=== PATIENT | male | born 1980 | race Caucasian/White ===

== ENCOUNTER → 2017-04-06 | Outpatient (CLI) | payer MEDICAID, SELFPAY | PROVIDERS: Visit Provider Nurse Practitioner Family | DX: R53.83 Other fatigue (principal) | CPT/HCPCS: 80053; 80061; 82306; 83036; 84439; 84443; 85025 ==

== ENCOUNTER 2020-02-01 15:24 | Emergency (ER) | payer MEDICAID, SELFPAY ==
[2020-02-01 15:24] VITALS: BP 140/100; PULSE 101; RESP 18; TEMP 36.7; O2SAT 100; BMI 27.2
--- NOTE | 2020-02-01 15:38 | HMH.EDGENADL ---
ED Disposition Clinical Impression: Abdominal pain, acute, generalized Constipation Qualifiers: Constipation type: unspecified constipation type Qualified Code(s): K59.00 - Constipation, unspecified Hepatitis C Qualifiers: Viral hepatitis chronicity: unspecified Hepatic coma status: without hepatic coma Qualified Code(s): B19.20 - Unspecified viral hepatitis C without hepatic coma Disposition: Home, Self-Care Condition on Discharge: Good Additional Instructions: MiraLAX as prescribed. Ibuprofen as needed for pain. Additional instructions for ABDOMINAL PAIN: See your physician as soon as possible for further evaluation. Return immediately if worsening abdominal pain, vomiting, shortness of breath, fever, vomiting of blood or abdominal distention. Follow-up with your primary care provider regarding further evaluation and treatment of hepatitis C. Prescriptions: polyethylene glycoL 3350 [Miralax 17gm Packet] 17 gm PO DAILY #5 packet Transmission Status: Pending to [facility] Referrals: Marc Childers MD [Primary Care Provider] - - Critical Care Critical Care Time: No Attestation: On , the high probability of a clinically significant, sudden or life threatening deterioration of the following system(s) required my full and direct attention, intervention and personal management. The time I documented below is in addition to time spent performing reported procedures but includes the following listed in this critical care notation. Medical Decision Making - Medical Records Medical records reviewed: Yes: I reviewed the patient's medical records. MR Comment: [facility] portal accessed and visit from 01/31/2020 reviewed. The patient had a CT scan of his thoracic and lumbar spine that were negative. There is no mention that he complained of abdominal pain or vomiting. No lab tests were performed, no notation of any blood draw or IV. Naproxen rx at discharge. Ketorolac and [place] in ED. - Tarik Inquiry Pt receiving controlled substance: No Tarik was queried for this patient: Yes Reference #:: [id number] Comment: 1 rx. suboxone 11/27/19 Vital Signs: 02/01/20 15:24 02/01/20 17:53 Temperature 98.1 F Temperature Source Oral Pulse Rate [Right] 101 H 94 H Respiratory Rate 18 Blood Pressure [Right Arm] 140/100 H 143/90 H Blood Pressure Mean [Right Arm] 113 107 Blood Pressure Source [Right Arm] Automatic Cuff Blood Pressure Position [Right Arm] Sitting 02 Sat by Pulse Oximetry 100 98 Oxygen Delivery Method Room Air - Lab Data Lab results reviewed: Yes: I reviewed the patient's lab results. Lab Results 02/01/20 15:52: Urine Color Dk yellow, Urine Appearance Clear, Urine pH 7.5, Ur Specific [place] 1.020, Urine Protein Negative, Urine Glucose (UA) Negative, Urine Ketones Negative, Urine Blood Negative, Urine Nitrate Negative, Urine Bilirubin Negative, Urine Urobilinogen 4.0, Ur Leukocyte Esterase Negative, Urine RBC None, Urine WBC Occasional, Ur Squamous Epith Cells Occasional, Amorphous Sediment 2+, Urine Bacteria None 02/01/20 15:52: WBC 11.4 H, RBC 4.73, Hgb 14.1, Hct 42.5, MCV 89.8, MCH 29.8, MCHC 33.2, RDW 12.6, Plt Count 176, MPV 7.8, Neut % (Auto) 81.5 H, Lymph % (Auto) 13.3, [place] % (Auto) 4.7, Eos % (Auto) 0.2, Baso % (Auto) 0.3, Neut # (Auto) 9.3 H, Lymph # (Auto) 1.5, [place] # (Auto) 0.5, Eos # (Auto) 0.0, Baso # (Auto) 0.0 02/01/20 15:52: Sodium 135 L, Potassium 4.3, Chloride 94 L, Carbon Dioxide 31 H, Anion Gap 14.3, BUN 23 H, Creatinine 0.70, Estimated Creat Clear 171, Estimated GFR 125, Est GFR ( Amer) 151, Glucose 141 H, Calcium 9.7, Total Bilirubin 1.5 H, AST 75 H, ALT 70, Alkaline Phosphatase 118, Total Protein 8.7 H, Albumin 3.8, Globulin 4.9 H, Albumin/Globulin Ratio 0.8 L, Amylase 40, Lipase 16 L 02/01/20 15:52: Lactate 1.4 02/01/20 15:52: Urine Opiates Screen Positive H, Urine Methadone Screen Negative, Ur Barbituates Screen Negative, Ur Phencyclidine Scrn Negative
--- NOTE | 2020-02-01 15:52 | CT_ITS ---
PROCEDURE: CT ABDOMEN PELVIS W CON CLINICAL INDICATION: abd pain Generalized abdominal pain with nausea vomiting and diarrhea COMPARISON: No exams were available for comparison TECHNIQUE: IV Contrast: 75ML OPTIRAY 350 Oral Contrast None Axial images obtained with sagittal and coronal reformats. All CT scans at the facility use one or more dose reduction, viz: automated exposure control, ma/kV adjustment per patient size (including targeted exams where dose is matched to indication, i.e. head), or iterative reconstruction technique. FINDINGS: LOWER THORAX: There is trace left-sided effusion. ABDOMEN & PELVIS: The liver has an unremarkable appearance. There is mildly distended gallbladder. There is prominence of the intra and extrahepatic biliary radicles.. There is massive splenomegaly at 20 cm cephalad caudad. There is heterogeneous soft tissue density in the region of the antrum of the stomach. This may be related to gastric mass or severe mucosal thickening. This is best demonstrated on axial image 35 series 3 and coronal image 23 series 601 and sagittal image 51. This area measures approximately 6.5 x 4.9 cm. There is a focal area of air just lateral to the thickened portion of the stomach toward the right in may be related to air within the duodenal bulb. Repeat exam with oral contrast may confirm. The pancreatic duct is slightly prominent. Small nodes are present in the celiac region. A 9 mm soft tissue density is present in the amisha hepatis region along the superior aspect of the gallbladder. Unknown etiology. MRI may provide further evaluation. No renal or ureteral calculi. No hydronephrosis. There are few small retroperitoneal lymph nodes. There is a moderate amount of retained colonic feces throughout the colon. No evidence of appendicitis. There is a small amount fluid in the pelvis. No acute bony findings IMPRESSION: 1. Severe thickening of the antral portion of the stomach. Inflammatory change or neoplasm is considered. Repeat exam with both IV and oral contrast may provide further evaluation. Upper endoscopy suggested for further evaluation. 2. Distended gallbladder with intra and extrahepatic biliary ductal dilatation. Small soft tissue density in the amisha hepatis region etiology indeterminate. Suggest MRCP for further evaluation. Cannot exclude distal common bile duct obstructing lesion. 3. Massive splenomegaly at 20 cm. 4. Constipation Dictated by: Yan Adame MD 02/02/2020 08:44 Yan Adame MD in [place] 02/02/2020 08:44
[2020-02-01 16:03] LABS: Microscopic, Urine URINE MICROSCOPIC (MICROSCOPIC)
[2020-02-01 16:08] LABS: Chloride 94 mmol/L (98-107); Sodium 135 mmol/L (136-145)
[2020-02-01 16:09] LABS: Basophils % 0.3 % (0.1-2.0); Eosinophils % 0.2 % (0.1-12.0); Hematocrit 42.5 % (42.0-52.0); Hemoglobin 14.1 g/dL (14.1-18.0); Lymphocytes # 1.5 K/mm3 (0.7-4.5); Lymphocytes % 13.3 % (10-50); Mean Corpuscular HGB Conc 33.2 g/dL (31.8-35.4); Mean Corpuscular Hemoglobin 29.8 pg (27.0-31.2); Mean Corpuscular Volume 89.8 fl (80-94); Mean Platelet Volume 7.8 fl (7.4-10.4); Monocytes # 0.5 K/mm3 (0.1-1.0); Monocytes % 4.7 % (1.7-9.3); Neutrophils # 9.3 K/mm3 (1.8-7.8); Neutrophils % 81.5 % (37.0-80.0); Platelet Count 176 K/mm3 (142-424); Potassium 4.3 mmoL/L (3.5-5.1); Red Blood Count 4.73 M/mm3 (4.60-6.20); Red Cell Distribution Width 12.6 % (11.5-17.5); White Blood Count 11.4 K/mm3 (4.8-10.8)
[2020-02-01 16:11] LABS: Alanine Aminotransferase 70 U/L (12-78); Alkaline Phosphatase 118 U/L (38-126); Amylase 40 U/L (30-110); Anion Gap 14.3 mEq/L (5-15); Appearance,Urine CLEAR (Clear); Aspartate Amino Transferase 75 U/L (17-59); Bilirubin,Total 1.5 mg/dl (0.2-1.3); Blood Urea Nitrogen 23 mg/dl (9-20); Blood, Urine Negative (Negative); Calcium 9.7 mg/dl (8.4-10.2); Carbon Dioxide 31 mmol/L (22.0-30.0); Color,Urine DK YELLOW (Yellow); Creatinine Clearance Estimated 171 mL/min (50-200); Estimated Glomerular Filt Rate 125 ml/min (>60); GFR (African American) 151 ML/MIN (>60); Glucose 141 mg/dl (74-100); Glucose,Urine (UA) Negative (Negative); Ketones,Urine Negative (Negative); Leukocyte Esterase,Urine Negative (Negative); Lipase 16 U/L (23-300); Nitrate,Urine Negative (Negative); PH,Urine 7.5 (5.0-8.5); Protein,Urine Negative (Negative)
[2020-02-01 16:12] LABS: Albumin Level 3.8 g/dl (3.5-5.0); Albumin/Globulin Ratio 0.8 (1.1-1.8); Globulin 4.9 g/dL (1.3-3.2); Total Protein,Serum 8.7 g/dl (6.3-8.2)
[2020-02-01 16:13] LABS: Ammonia < 9 umol/L (9-30)
[2020-02-01 16:14] LABS: Bilirubin,Urine Negative (Negative)
[2020-02-01 16:16] LABS: Lactic Acid 1.4 mmol/L (0.7-2.1)
[2020-02-01 16:18] LABS: Amorphous Sediment,Urine 2+ /lpf; Squamous Epithelial Cell,Urine Occasional #/hpf (0-5); WBC,Urine Occasional #/hpf (0-3)
[2020-02-01 16:19] LABS: Activated Partial Thrombo Time 29.9 seconds (23.6-34.0); Ethyl Alcohol < 10 mg/dl (0-10); INR 1.18 (0.9-1.1); Prothrombin Time 12.9 seconds (9.4-11.8)
[2020-02-01 16:20] LABS: Alanine Aminotransferase 70 U/L (12-78); Albumin Level 3.8 g/dl (3.5-5.0); Alkaline Phosphatase 135 U/L (38-126); Aspartate Amino Transferase 76 U/L (17-59); Bilirubin,Direct 0.8 mg/dl (0.0-0.4); Bilirubin,Indirect 0.7 mg/dL (0.0-0.9); Bilirubin,Total 1.5 mg/dl (0.2-1.3); Bilirubin,Unconjugated 0.6 mg/dL (0.0-1.1); Total Protein,Serum 8.5 g/dl (6.3-8.2)
[2020-02-01 16:21] LABS: Acetaminophen < 10 ug/ml (10-30)
[2020-02-01 16:22] LABS: Benzodiazepines Screen,Urine Negative ng/ml (<200)
[2020-02-01 16:24] LABS: Barbiturates Screen,Urine Negative ng/ml (<200)
[2020-02-01 16:25] LABS: Methadone Screen,Urine Negative ng/ml (<300)
[2020-02-01 16:26] LABS: Cannabinoid Screen,Urine Positive ng/ml (<50); Cocaine Screen,Urine Negative ng/ml (<300)
[2020-02-01 16:27] LABS: Opiate Screen,Urine Positive ng/ml (<300)
[2020-02-01 16:28] LABS: Phencyclidine Screen,Urine Negative ng/ml (<25)
[2020-02-01 17:53] VITALS: BP 143/90; PULSE 94; O2SAT 98
[2020-02-01 19:06] VITALS: BP 132/85; PULSE 95; RESP 18; TEMP 36.8; O2SAT 100
--- NOTE | 2020-02-03 16:52 | PC.NURSE ---
left message this morning on pt voicemail and also left message with sister in law for pt to call the ER. No contact at this time.
--- NOTE | 2020-02-04 17:04 | PC.NURSE ---
Notified pt of ct results for a gastric mass and needed to fu with his PCP for further care. Pt stated that he will
[2020-02-06 19:22] LABS: Amphetamine Positive (.); Amphetamines Positive (.); Methamphetamine Positive (.)
[2020-02-07 10:04] LABS: Amphetamine (GC/MS) 1282 ng/mL (Cutoff=500); Methamphetamine (GC/MS) >3000 ng/mL (Cutoff=500)
== END 2020-02-01 19:08 | disposition home or self-care (01) ==
PROVIDERS: Emergency Provider Emergency Medicine; PCP Emergency Medicine
DX: R10.84 Generalized abdominal pain (principal); B19.20 Unspecified viral hepatitis C without hepatic coma; F17.210 Nicotine dependence, cigarettes, uncomplicated; K31.89 Other diseases of stomach and duodenum; F19.10 Other psychoactive substance abuse, uncomplicated
CPT/HCPCS: 74177; 80053; 80076; 80305; 80324; 80329; 81001; 82140; 82150; 83605; 83690; 85025; 85610; 85730; 87040; 87077; 87186; 96365; 96375; 99284; J2405

== ENCOUNTER 2020-02-04 17:38 | Inpatient (IN) | payer MEDICAID, SELFPAY ==
[2020-02-04] VITALS (10 sets, daily range): BP systolic 136–163; BP diastolic 77–105; PULSE 104–132; RESP 17–24; TEMP 36.6–37; O2SAT 96–99; BMI 29.2; BMI 23.8
--- NOTE | 2020-02-04 17:59 | HMH.EDGENADL ---
ED Disposition Condition on Discharge: Fair - Critical Care Critical Care Time: No <Maverick Wen - Last Filed: 02/04/20 19:55> <Marc Childers - Last Filed: 02/04/20 21:04> Clinical Impression: Splenomegaly, Heroin abuse, Abdominal pain, acute, generalized, Mass of stomach, Severe sepsis with acute organ dysfunction, Elevated erythrocyte sedimentation rate, Elevated C-reactive protein (CRP), IVDU (intravenous drug user), Colitis Hepatitis C Qualifiers: Viral hepatitis chronicity: unspecified Hepatic coma status: without hepatic coma Qualified Code(s): B19.20 - Unspecified viral hepatitis C without hepatic coma Vomiting Qualifiers: Vomiting type: unspecified Vomiting Intractability: unspecified Nausea presence: with nausea Qualified Code(s): R11.2 - Nausea with vomiting, unspecified Disposition: Admitted As Inpatient Referrals: Marc Childers MD [Primary Care Provider] - Attestation: On 02/04/20, the high probability of a clinically significant, sudden or life threatening deterioration of the following system(s) required my full and direct attention, intervention and personal management. The time I documented below is in addition to time spent performing reported procedures but includes the following listed in this critical care notation. Medical Decision Making - Tarik Inquiry Pt receiving controlled substance: No - Lab Data Result diagrams: 02/04/20 18:45 02/04/20 18:05 <BehzadMaverick - Last Filed: 02/04/20 19:55> - Lab Data Lab results reviewed: Yes: I reviewed the patient's lab results. Result diagrams: 02/04/20 18:45 02/04/20 18:05 - CT Data CT Scan: Abdomen, Pelvis Time Received: 20:[address] Reviewed: Yes: I have viewed the radiologist's interpretation Preliminary Findings: Abnormal (see report) <Marc Childers - Last Filed: 02/04/20 21:04> Vital Signs: 02/04/20 17:49 02/04/20 18:21 02/04/20 19:31 Temperature 98 F Temperature Source Oral Pulse Rate [Left Radial] 132 H 122 H 115 H Respiratory Rate 18 18 Blood Pressure [Right Arm] 163/100 H 141/102 H 150/96 H Blood Pressure Mean [Right Arm] 121 115 114 Blood Pressure Source [Right Arm] Automatic Cuff Blood Pressure Position [Right Arm] Sitting Sitting 02 Sat by Pulse Oximetry 96 96 97 Oxygen Delivery Method Room Air Room Air Room Air 02/04/20 20:02 02/04/20 20:46 Temperature Temperature Source Pulse Rate [Left Radial] 115 H 107 H Respiratory Rate 18 18 Blood Pressure [Right Arm] 157/105 H 156/97 H Blood Pressure Mean [Right Arm] 122 116 Blood Pressure Source [Right Arm] Blood Pressure Position [Right Arm] 02 Sat by Pulse Oximetry 97 97 Oxygen Delivery Method Room Air Room Air - Lab Data Lab Results 02/04/20 18:05: Sodium 133 L, Potassium 4.1, Chloride 96 L, Carbon Dioxide 26, Anion Gap 15.1 H, BUN 27 H, Creatinine 0.80, Estimated Creat Clear 165, Estimated GFR 107, Est GFR ( Amer) 130, Glucose 188 H, Calcium 9.1, Total Bilirubin 1.4 H, AST 29, ALT 35, Alkaline Phosphatase 132 H, C-Reactive Protein 278.3 H, Total Protein 7.6, Albumin 3.3 L, Globulin 4.3 H, Albumin/Globulin Ratio 0.8 L, Amylase 36, Lipase 10 L 02/04/20 18:05: Lactate 2.1 02/04/20 18:45: WBC 13.7 H, RBC 4.43 L, Hgb 13.0 L, Hct 39.0 L, MCV 88.1, MCH 29.4, MCHC 33.3, RDW 13.1, Plt Count 195, MPV 8.4, Neut % (Auto) 81.3 H, Lymph % (Auto) 10.5, [place] % (Auto) 7.6, Eos % (Auto) 0.4, Baso % (Auto) 0.2, Neut # (Auto) 11.1 H, Lymph # (Auto) 1.4, [place] # (Auto) 1.0, Eos # (Auto) 0.1, Baso # (Auto) 0.0 02/04/20 18:45: ESR 80 H 02/04/20 19:50: Urine Color Gwendolyn, Urine Appearance Clear, Urine pH 6.0, Ur Specific [place] 1.025, Urine Protein 1+, Urine Glucose (UA) Negative, Urine Ketones Negative, Urine Blood Negative, Urine Nitrate Negative, Urine Bilirubin Negative, Urine Urobilinogen >=8.0, Ur Leukocyte Esterase Negative, Urine RBC 3-5, Urine WBC 3-5, Ur Squamous Epith Cells 5-10, Amorphous Sediment 1+, Urine Bacteria 1+, Urine Mucus 1+, Ur
--- NOTE | 2020-02-04 18:17 | CT_ITS ---
PROCEDURE: CT ABDOMEN PELVIS W CON CLINICAL INDICATION: abdominal pain, possible gastric mass COMPARISON: CT CT ABDOMEN PELVIS W CON from 02/01/2020 TECHNIQUE: IV Contrast: 75ML OPTIRAY 350 Oral Contrast None Axial images obtained with sagittal and coronal reformats. All CT scans at the facility use one or more dose reduction, viz: automated exposure control, ma/kV adjustment per patient size (including targeted exams where dose is matched to indication, i.e. head), or iterative reconstruction technique. FINDINGS: The lung bases are clear. The liver has an unremarkable appearance. There is a trace amount of pericholecystic fluid with mildly distended gallbladder and mild prominence of the common bile duct. Consider MRCP for further evaluation. There is splenomegaly at 20 cm. The adrenal glands, pancreas, and kidneys have an unremarkable appearance. Previously there was a question of a gastric mass at the antrum of the stomach. The stomach antrum is better distended on today's study and there is oral contrast present. There is some persistent thickening of the antrum of the stomach. Upper endoscopy is suggested for further evaluation. This has a less masslike appearance compared to the previous exam likely due to the better distension and possibly improvement in inflammatory change. There is a moderate amount of retained colonic feces. There is thickening of the descending colon and sigmoid colon consistent with colitis. There is minimal haziness of the pericolic fat in the left pericolic gutter. No acute bony findings. IMPRESSION: 1. Gastric wall thickening is less apparent compared to 02/01/2020 and in part may be due to improved distension as well as improvement in the inflammatory changes. There does however remain some gastric wall thickening of the antrum of the stomach and may be due to underlying gastritis. Suggest upper endoscopy for further evaluation. 2. Distended gallbladder with mild amount of pericholecystic fluid and mild prominence of the common bile duct. 3. Splenomegaly. 4. Constipation with thickening of the descending and sigmoid colon consistent with colitis. Dictated by: aYn Adame MD 02/05/2020 11:01 Yan Adame MD in [place] 02/05/2020 11:01
[2020-02-04 18:31] LABS: Chloride 96 mmol/L (98-107); Potassium 4.1 mmoL/L (3.5-5.1); Sodium 133 mmol/L (136-145)
[2020-02-04 18:34] LABS: Alanine Aminotransferase 35 U/L (12-78); Albumin Level 3.3 g/dl (3.5-5.0); Alkaline Phosphatase 132 U/L (38-126); Amylase 36 U/L (30-110); Anion Gap 15.1 mEq/L (5-15); Aspartate Amino Transferase 29 U/L (17-59); Bilirubin,Total 1.4 mg/dl (0.2-1.3); Blood Urea Nitrogen 27 mg/dl (9-20); Calcium 9.1 mg/dl (8.4-10.2); Carbon Dioxide 26 mmol/L (22.0-30.0); Creatinine Clearance Estimated 165 mL/min (50-200); Estimated Glomerular Filt Rate 107 ml/min (>60); GFR (African American) 130 ML/MIN (>60); Glucose 188 mg/dl (74-100); Lactic Acid 2.1 mmol/L (0.7-2.1); Lipase 10 U/L (23-300)
[2020-02-04 18:35] LABS: Albumin/Globulin Ratio 0.8 (1.1-1.8); Globulin 4.3 g/dL (1.3-3.2); Total Protein,Serum 7.6 g/dl (6.3-8.2)
[2020-02-04 18:40] LABS: C-Reactive Protein 278.3 mg/L (0-4)
--- NOTE | 2020-02-04 18:41 | PC.NURSE ---
FINISHED PO CONTRAST
[2020-02-04 18:55] LABS: Basophils % 0.2 % (0.1-2.0); Eosinophils # 0.1 K/mm3 (0.0-0.4); Eosinophils % 0.4 % (0.1-12.0); Lymphocytes # 1.4 K/mm3 (0.7-4.5); Lymphocytes % 10.5 % (10-50); Mean Corpuscular HGB Conc 33.3 g/dL (31.8-35.4); Mean Corpuscular Hemoglobin 29.4 pg (27.0-31.2); Mean Corpuscular Volume 88.1 fl (80-94); Mean Platelet Volume 8.4 fl (7.4-10.4); Monocytes % 7.6 % (1.7-9.3); Neutrophils # 11.1 K/mm3 (1.8-7.8); Neutrophils % 81.3 % (37.0-80.0); Platelet Count 195 K/mm3 (142-424); Red Blood Count 4.43 M/mm3 (4.60-6.20); Red Cell Distribution Width 13.1 % (11.5-17.5); White Blood Count 13.7 K/mm3 (4.8-10.8)
[2020-02-04 19:21] LABS: Erythrocyte Sedimentation Rate 80 mm/hr (0-15)
--- NOTE | 2020-02-04 19:26 | PC.NURSE ---
pt states he has tried to pee a couple times with no luck.
--- NOTE | 2020-02-04 20:03 | PC.NURSE ---
pt to CT at this time via wheelchair
[2020-02-04 20:09] LABS: Microscopic, Urine URINE MICROSCOPIC (MICROSCOPIC)
[2020-02-04 20:22] LABS: Appearance,Urine CLEAR (Clear); Blood, Urine Negative (Negative); Color,Urine AMBER (Yellow); Glucose,Urine (UA) Negative (Negative); Ketones,Urine Negative (Negative); Leukocyte Esterase,Urine Negative (Negative); Nitrate,Urine Negative (Negative); Protein,Urine 1+ (Negative); Specific Gravity, Urine 1.025 (1.005-1.030); Urobilinogen,Urine >=8.0 EU/dl (0.2)
--- NOTE | 2020-02-04 20:22 | PC.NURSE ---
pt back from CT
[2020-02-04 20:35] LABS: Benzodiazepines Screen,Urine Positive ng/ml (<200)
[2020-02-04 20:36] LABS: Barbiturates Screen,Urine Negative ng/ml (<200); Bilirubin,Urine Negative (Negative)
[2020-02-04 20:37] LABS: Amorphous Sediment,Urine 1+ /lpf; Bacteria,Urine 1+ /lpf; Cannabinoid Screen,Urine Positive ng/ml (<50); Methadone Screen,Urine Negative ng/ml (<300); Mucus,Urine 1+ /lpf; Sperm,Urine 1+ /lpf
[2020-02-04 20:38] LABS: Cocaine Screen,Urine Negative ng/ml (<300); Opiate Screen,Urine Positive ng/ml (<300)
[2020-02-04 20:39] LABS: Phencyclidine Screen,Urine Negative ng/ml (<25)
--- NOTE | 2020-02-04 20:54 | XR_ITS ---
PROCEDURE: XR CHEST 2V CLINICAL HISTORY: look for infection Possible infection, pain COMPARISON: CT CT ABDOMEN PELVIS W CON from 02/04/2020 FINDINGS: The cardiomediastinal silhouette and pulmonary vascularity are within normal limits. The lungs are clear without infiltrates, suspicious nodules, or pleural effusions. No acute bony abnormalities. IMPRESSION: No acute findings. Dictated by: Yan Adame MD 02/05/2020 05:29 Yan Adame MD in [place] 02/05/2020 05:29
--- NOTE | 2020-02-04 20:58 | PC.NURSE ---
called lab to see if they had blood cultures for the pt and trevor just needed any order. lab stated they didnt receive any blood cultures for the pt
[2020-02-04 21:28] LABS: Coronavirus 19 IgG Antibody Negative (Negative); Coronavirus 19 IgM Antibody Negative (Negative)
--- NOTE | 2020-02-04 22:17 | PC.NURSE ---
PT ARRIVED VIA W/C FROM ED W/ STAFF AT [id number]
[2020-02-04 22:19] LABS: Reflex Lactic Add Lactic Reflex
[2020-02-04 22:30] LABS: Lactic Acid Follow Up (RFLX 1) 1.2 mmol/L (0.7-2.1)
--- NOTE | 2020-02-04 23:08 | PC.NURSE ---
Left elbow 1x1 cm. Healing scab, no discharge, pink around edges.
--- NOTE | 2020-02-04 23:13 | PC.NURSE ---
Healing cut to Posterior left arm near elbow. [place] healing skin and small scab. 3x1 cm. No discharge.
--- NOTE | 2020-02-04 23:17 | PC.NURSE ---
Photo consent obtained and placed in pt's chart. 2 photos uploaded into pt's EMR. Pt reports this wound is from a spider bite a while ago .
[2020-02-05] VITALS (7 sets, daily range): BP systolic 140–152; BP diastolic 66–90; PULSE 86–111; RESP 15–20; TEMP 36.4–36.7; O2SAT 95–98; BMI 24.0
--- NOTE | 2020-02-05 03:10 | PC.NURSE ---
Pt is A&Ox4 and has ambulated to the 2x this shift and tolerated well. Pt has slept well during the night and no c/o abd pain since admission. Pt denies and N/V. ABD is soft, non-tender and active BS. SO at bedside. HR continues to be elevated, otherwise VS are WNL. Repeat lactic decreased to WNL. Lungs CTA. Pt continues to be NPO for Gen Surg consult this am. NS infusing at 150ml/hr to #18g peripheral IV to HOLLY. Call light within reach, will continue to monitor.
--- NOTE | 2020-02-05 05:19 | PC.NURSE ---
Pt moaning and rolling around in bed stating he needs something to help with the pain in his legs. Upon further questioning pt then states this pt also radiating to groin. Pt also c/o nausea. Pt medicated with Zofran and toradol per JUN.
[2020-02-05 07:35] LABS: Basophils % 0.2 % (0.1-2.0); Eosinophils % 0.1 % (0.1-12.0); Hematocrit 36.9 % (42.0-52.0); Hemoglobin 12.2 g/dL (14.1-18.0); Lymphocytes # 0.8 K/mm3 (0.7-4.5); Lymphocytes % 7.1 % (10-50); Mean Corpuscular Volume 87.8 fl (80-94); Mean Platelet Volume 9.6 fl (7.4-10.4); Monocytes # 0.7 K/mm3 (0.1-1.0); Monocytes % 6.4 % (1.7-9.3); Neutrophils # 9.3 K/mm3 (1.8-7.8); Neutrophils % 86.2 % (37.0-80.0); Platelet Count 152 K/mm3 (142-424); Red Cell Distribution Width 13.3 % (11.5-17.5); White Blood Count 10.8 K/mm3 (4.8-10.8)
[2020-02-05 07:39] LABS: MANUAL DIFFERENTIAL MANUAL DIFFERENTIAL (MANUAL DIFF)
[2020-02-05 07:55] LABS: Anion Gap 12.6 mEq/L (5-15); Blood Urea Nitrogen 25 mg/dl (9-20); Calcium 8.8 mg/dl (8.4-10.2); Carbon Dioxide 26 mmol/L (22.0-30.0); Chloride 100 mmol/L (98-107); Creatinine Clearance Estimated 155 mL/min (50-200); Estimated Glomerular Filt Rate 125 ml/min (>60); GFR (African American) 151 ML/MIN (>60); Glucose 106 mg/dl (74-100); Potassium 3.6 mmoL/L (3.5-5.1); Sodium 135 mmol/L (136-145)
--- NOTE | 2020-02-05 08:00 | CA_ITS ---
APPROVED REPORT EXAM: Comprehensive 2D, Doppler, and color-flow Echocardiogram Terrazzo Roller: Karlene He, RT(R) Ht: 5 ft 11 in Wt: 170lbs BSA: 1.97 BP: 150/96 mmHg Indications: colitis, septic, IV drug user, murmur , smoker 2D Dimensions LVOT 2.22 cm (M/F) 1.5-2.5 M-Mode Dimensions RVDd 2.29 cm (0.9-2.6) LA Diam 3.30 cm (1.9-4.0) LVDd 4.72 cm (3.5-5.7) Ao Diam 3.52 cm (2.0-3.7) LVDs 3.54 cm (3.5-5.7) IVSd 0.86 cm (0.6-1.1) PWd 0.89 cm (0.6-1.1) EF (Teich) 49.40% FS 25.00% EDV (Teich) 103.40 mL ESV (Teich) 52.30 mL LV Diastology E Decel Time 150.00 (160-240 msec) E/A Ratio 0.6 MED E' 9.60 (< 7 cm/sec) E'/MED E' Ratio 6.04 (>14) LAT E' 18.40 (<10 cm/sec) E/LAT E' Ratio 3.15 (>14) Mitral Valve MV E Max Louis. 58.00 (40-130 cm/s) MV A Velocity 91.00 (40-130 cm/s) E/A Ratio 0.63 MV Decel. Time 150.00 (160-240 ms) MV PHT 44.00 ms Left Ventricle Left atrium is normal size, left ventricle is normal size, there is no concentric left ventricular hypertrophy, visually estimated ejection fraction 55% with no regional wall motion abnormality, diastolic parameters are within normal range. Right Ventricle Right atrium right ventricular normal size and contractility. Aortic Valve Aortic valve is grossly normal, there is no aortic stenosis or aortic insufficiency. Mitral Valve Mitral valve is grossly normal, there is mild mitral regurgitation. Tricuspid Valve Tricuspid valve grossly normal, there is mild tricuspid regurgitation, tricuspid regurgitation jet velocity is inadequate for calculation of the right ventricular systolic pressure. Pulmonic Valve Pulmonic valve is poorly visualized. Great Vessels Aortic root is normal size. Pericardium No significant pericardial effusion noted. Conclusion 1. Normal left ventricular size, preserved left ventricular systolic function, visually estimated ejection fraction 55% with no regional wall motion abnormality. Diastolic parameters are within normal range. 2. Mild mitral and tricuspid regurgitation. 3. No significant pericardial effusion noted. Electronically signed by : Surinder Hernandez, 02/06/2020 16:03:10
--- NOTE | 2020-02-05 08:16 | HMH.PHAVTE ---
[facility] Pharmacy VTE Monitoring - Patient Demographics Admission date: 02/05/20 Report Date: 02/05/20 Time: 08:16 Allergies/Adverse Reactions: Patient Allergies No Known Allergies Allergy (Verified 09/04/17 15:43) Height: 1.8 m Weight: 78.075 kg Patient Problems: Current Active Problems Abdominal pain, acute, generalized (Acute) Hepatitis C (Acute) Splenomegaly (Acute) Heroin abuse (Acute) Vomiting (Acute) Mass of stomach (Acute) Severe sepsis with acute organ dysfunction (Acute) Elevated erythrocyte sedimentation rate (Acute) Elevated C-reactive protein (CRP) (Acute) IVDU (intravenous drug user) (Acute) Colitis (Acute) - VTE Risk Labs: VTE Related Lab Results Hgb 12.2 g/dL (14.1-18.0) L 02/05/20 06:25 Hct 36.9 % (42.0-52.0) L 02/05/20 06:25 Plt Count 152 K/mm3 (142-424) 02/05/20 06:25 BUN 25 mg/dl (9-20) H 02/05/20 06:25 Creatinine 0.70 mg/dl (0.66-1.25) 02/05/20 06:25 Estimated Creat Clear 155 mL/min (50-200) 02/05/20 06:25 VTE Score: 0 VTE Risk Level: Low Risk Clinical Trial Participant: No - Prophylaxis VTE Prophylaxis Ordered?: Yes Types of VTE Prophylaxis: TEDS Knee High
[2020-02-05 08:35] LABS: Lymphocytes % 8 % (10-50); Monocytes % 5 % (2-9); Neutrophils % 87 % (42-76); Total Cells Counted 100
[2020-02-05 08:36] LABS: Platelet Estimate Slight Decrease; RBC Morphology Normal
--- NOTE | 2020-02-05 08:55 | HMH.HP ---
*Admission Date: 02/05/20 *Chief complaint: abd pain *History of present illness: 39 yr old male presented to ed with abd pain. Patient seen in emergency department on 02/01/2020 for abdominal pain and vomiting. The CT scan which was read by [facility] radiologist as showing large amount of stool throughout the colon, mild hepatosplenomegaly. Then [facility] radiologist read the CT scan and added additional findings. Per notes The patient was called on 02/02/2020 and messages left. Patient states he was told to follow up with pcp but the pain brought him back to emergency room. He complains of pain in his lower back, pain that goes down both lower quadrants of his abdomen into his groin and up into his upper abdomen. Patient reports vomiting off and on. Denies fever.He reports to ed staff that he was using heroin pretty heavily until he was seen here and then has cut down a lot. The last time he used heroin was 2 days ago. He denies drinking alcohol or using other drugs. Patient admitted for colitis, placed on antibiotics. [facility] History I have reviewed the patient's past medical history: Yes Medical History: Denies:: Cancer, Diabetes Mellitus Type 1, Diabetes Mellitus Type 2, MRSA *Have you ever received a pneumonia vaccine?: No *Have you received a flu vaccine this season?: No Other Medical History: Reports: Liver Disease Amputation: No Fractures: Yes (L hand, ring finger fx repair) - *Social History Last grade of school completed: GED Smoking Status: Current every day smoker Tobacco Type: cigarettes # Packs/Day (cigarettes): 1 Alcohol Intake: current Alcohol Intake Frequency:: holidays/special occasions only Substance Use Type: marijuana, heroin, IV drugs *Occupational Status:: employed Housing: apartment Household Members: significant other, family *Travel in the last 8 weeks: None Family Hx:: Cancer, Coronary Artery Disease, Diabetes, Hyperlipidemia, Hypertension, Stroke, Substance abuse, Alcoholism, Mental illness Review of Systems - Constitutional Reports body ache(s), Reports fatigue - Eyes Denies change in vision - ENT Denies bleeding gums - *Cardiovascular Denies chest pain at rest, Denies leg sores - *Respiratory Denies chest congestion - *Gastrointestinal Reports nausea, Reports vomiting, Denies bloating - *Genitourinary Denies urinary frequency - *Musculoskeletal Denies joint pain - Integumentary/Breasts Denies rash - *Neurologic Denies abnormal hearing, Denies dizziness - Psychiatric Denies lack of enjoyment - Endocrine Denies excessive sweating - Hematologic/Lymphatic Denies easy bruising - Allergic/Immunologic Denies itchy eyes Meds Home Medications Medication Instructions Recorded Confirmed Type No Known Home Medications 02/04/20 02/04/20 History Allergies Allergy/AdvReac Type Severity Reaction Status Date / Time No Known Allergies Allergy Verified 09/04/17 15:43 Exam Vital signs and Labs for Last 24 Hours: Temp Pulse Resp BP Pulse Ox 97.5 F L 108 H 15 151/90 H 97 02/05/20 07:59 02/05/20 07:59 02/05/20 07:59 02/05/20 07:59 02/05/20 07:59 Laboratory Results - last 24 hr 02/04/20 18:05: Sodium 133 L, Potassium 4.1, Chloride 96 L, Carbon Dioxide 26, Anion Gap 15.1 H, BUN 27 H, Creatinine 0.80, Estimated Creat Clear 165, Estimated GFR 107, Est GFR ( Amer) 130, Glucose 188 H, Calcium 9.1, Total Bilirubin 1.4 H, AST 29, ALT 35, Alkaline Phosphatase 132 H, C-Reactive Protein 278.3 H, Total Protein 7.6, Albumin 3.3 L, Globulin 4.3 H, Albumin/Globulin Ratio 0.8 L, Amylase 36, Lipase 10 L 02/04/20 18:05: Lactate 2.1 02/04/20 18:05: SARS-CoV-2 IgG Ab (Rapid) Negative, SARS-CoV-2 IgM Ab (Rapid) Negative 02/04/20 18:45: WBC 13.7 H, RBC 4.43 L, Hgb 13.0 L, Hct 39.0 L, MCV 88.1, MCH 29.4, MCHC 33.3, RDW 13.1, Plt Count 195, MPV 8.4, Neut % (Auto) 81.3 H, Lymph % (Auto) 10.5, [place] % (Auto) 7.6, Eos % (Auto) 0.4, Baso % (Auto) 0.2, Neut # (
--- NOTE | 2020-02-05 12:45 | HMH.GSCON ---
*Admission Date: 02/05/20 *Reason for consult:: Abdominal pain *History of present illness: This is a 39-year-old gentleman seen in consultation from the service of Dr. Childers for evaluation of abdominal pain, possible gastritis, possible colitis, and possible gallbladder disease. Please see HPI from admission H&P forwarded below. Forwarded from primary service H&P: 39 yr old male presented to ed with abd pain. Patient seen in emergency department on 02/01/2020 for abdominal pain and vomiting. The CT scan which was read by [facility] radiologist as showing large amount of stool throughout the colon, mild hepatosplenomegaly. Then [facility] radiologist read the CT scan and added additional findings. Per notes The patient was called on 02/02/2020 and messages left. Patient states he was told to follow up with pcp but the pain brought him back to emergency room. He complains of pain in his lower back, pain that goes down both lower quadrants of his abdomen into his groin and up into his upper abdomen. Patient reports vomiting off and on. Denies fever.He reports to ed staff that he was using heroin pretty heavily until he was seen here and then has cut down a lot. The last time he used heroin was 2 days ago. He denies drinking alcohol or using other drugs. Patient admitted for colitis, placed on antibiotics. Review of Systems - *Neurologic Denies abnormal hearing, Denies dizziness [facility] History Medical History: Denies:: Cancer, Diabetes Mellitus Type 1, Diabetes Mellitus Type 2, MRSA *Have you ever received a pneumonia vaccine?: No *Have you received a flu vaccine this season?: No Other Medical History: Reports: Liver Disease Amputation: No Fractures: Yes (L hand, ring finger fx repair) - *Social History Last grade of school completed: GED Smoking Status: Current every day smoker Tobacco Type: cigarettes # Packs/Day (cigarettes): 1 Alcohol Intake: current Alcohol Intake Frequency:: holidays/special occasions only Substance Use Type: marijuana, heroin, IV drugs *Occupational Status:: employed Housing: apartment Household Members: significant other, family *Travel in the last 8 weeks: None Family Hx:: Cancer, Coronary Artery Disease, Diabetes, Hyperlipidemia, Hypertension, Stroke, Substance abuse, Alcoholism, Mental illness Meds Home Medications Medication Instructions Recorded Confirmed Type No Known Home Medications 10/20/20 10/20/20 History Allergies Allergy/AdvReac Type Severity Reaction Status Date / Time No Known Allergies Allergy Verified 09/04/17 15:43 Exam Vital signs and Labs for Last 24 Hours: Temp Pulse Resp BP Pulse Ox 97.8 F 107 H 16 140/88 95 02/05/20 12:00 02/05/20 12:00 02/05/20 12:00 02/05/20 12:00 02/05/20 12:00 Laboratory Results - last 24 hr 02/04/20 18:05: Sodium 133 L, Potassium 4.1, Chloride 96 L, Carbon Dioxide 26, Anion Gap 15.1 H, BUN 27 H, Creatinine 0.80, Estimated Creat Clear 165, Estimated GFR 107, Est GFR ( Amer) 130, Glucose 188 H, Calcium 9.1, Total Bilirubin 1.4 H, AST 29, ALT 35, Alkaline Phosphatase 132 H, C-Reactive Protein 278.3 H, Total Protein 7.6, Albumin 3.3 L, Globulin 4.3 H, Albumin/Globulin Ratio 0.8 L, Amylase 36, Lipase 10 L 02/04/20 18:05: Lactate 2.1 02/04/20 18:05: SARS-CoV-2 IgG Ab (Rapid) Negative, SARS-CoV-2 IgM Ab (Rapid) Negative 02/04/20 18:45: WBC 13.7 H, RBC 4.43 L, Hgb 13.0 L, Hct 39.0 L, MCV 88.1, MCH 29.4, MCHC 33.3, RDW 13.1, Plt Count 195, MPV 8.4, Neut % (Auto) 81.3 H, Lymph % (Auto) 10.5, [place] % (Auto) 7.6, Eos % (Auto) 0.4, Baso % (Auto) 0.2, Neut # (Auto) 11.1 H, Lymph # (Auto) 1.4, [place] # (Auto) 1.0, Eos # (Auto) 0.1, Baso # (Auto) 0.0 02/04/20 18:45: ESR 80 H 02/04/20 19:50: Urine Color Gwendolyn, Urine Appearance Clear, Urine pH 6.0, Ur Specific [place] 1.025, Urine Protein 1+, Urine Glucose (UA) Negative, Urine Ketones Negative, Urine Blood Negative, Urine Nitrate Negative, Urine Bilirubin Negative, Urine Urobilinog
--- NOTE | 2020-02-05 16:05 | PC.NURSE ---
Pt is alert and oriented x4. He has rested in bed all day up only to go ambulate to and from the bathroom. He moans intermittently, toradol given per mar. Appetite is very poor, 3-4 bites taken of jello at lunch and no other po intake noted. 18 to LAC is patent and infusing NS @ 150. Girlfriend is at bedside and supportive. Will continue to monitor.
--- NOTE | 2020-02-05 18:55 | PC.NURSE ---
Pt rang out and stated he was having pain and pointed to his epigastric area, he stated it hurt worse with inspiration. Toradol administered and on reassessment he stated that pain had improved slightly but was still intense. He was moaning as well. Dr Childers notified, 2mg morphine IV one time dose ordered, read back and verified. Order faxed to pharmacy and administered. Will reassess effectiveness.
--- NOTE | 2020-02-05 19:16 | PC.NURSE ---
report given to сергей
--- NOTE | 2020-02-05 19:21 | PC.NURSE ---
On reassessment patient is resting w/eyes closed, girlfriend at bedside states morphing helped.
--- NOTE | 2020-02-05 20:05 | PC.NURSE ---
Dr. Childers at bedside.
--- NOTE | 2020-02-05 20:55 | PC.NURSE ---
Received a call from someone stating to be pt's and requested detailed update on pt's condition. informed that no password was set up, this RN completed pt's admission and pt reported that he did not want a password that [he] have my phone to talk to who I want . Pt's sheila reports she could not get pt on the phone in his room. This RN went to pt's room to verify if information could be given and a password set up in place. Pt is A&Ox4 but sleepy. Pt acknowledged that his - Aylin could have any information on his condition and set up password as Jorge L . Pt's condition and detailed update given to . She states that she is currently incarcerated and can only call. Pt has had several visitors today and currently 2 women are at the director of sales support to visit with pt. They were informed of visitor policy being 1 at a time and needed to exchange in parking lot per [facility] visitor policy. Visitors upset and stated nobody has said anything to me about this! This RN apologized if it as not informed upon entrance to the facility, but there are signs posted and that is why the section forest fire warden stopped the visitors upon entering to the floor. 1 visitor tried to wait in the hallway, again reminded her that they could only enter 1 at a time and could not wait in the cruz. Visitor left the floor.
--- NOTE | 2020-02-05 22:45 | PC.NURSE ---
Pt c/o ABD radiating to mid back pain. Pt's friend also states a spot just popped up on his back . Pt's back assessed. Skin is c/d/i, no redness or heat noted t/o back. There is an old scar noted to mid back left of the spine. When palpated there is a small raised area near this scar, about the size of this RN's palm. This area is very tender to touch and pt arches away with the slightest touch. Pt denies any recent fall or trauma to the area. Just states this just popped up all of a sudden . MD Childers electronic musical instrument repairer for himself, called ER and notified MD of the above information. New orders for Pepcid & Reglan IV 1x dose. Will continue to monitor.
[2020-02-06] VITALS: BP 159/99; PULSE 102; RESP 18; TEMP 36.9; O2SAT 99
[2020-02-06 04:00] VITALS: BP 147/82; PULSE 93; RESP 16; TEMP 36.7; O2SAT 97
[2020-02-06 05:00] VITALS: BMI 24.9
--- NOTE | 2020-02-06 05:12 | PC.NURSE ---
Pt is A&Ox4 and has c/o pain several times to bilat groin, mid-back, and upper ABD, pt medicated per MAR as soon as meds available. Pt has c/o nausea 1x, medicated per JUN. Lungs with room air sats >96% t/o shift. ABD is soft, tender to palpation t/o and pt tenses abd and rolls back and forth in bed after the slightest palpation. Last reported BM is 02/04/20. Pt denies any vomiting or diarrhea. No peripheral edema noted & peripheral pulses 2+. There is a palpable site on pt's mid-back left of the spine that is tender to touch, no redness noted, and skin on back is c/d/i. MD aware. There is a scabbed area to pt's left elbow that has no edema and healing pink skin surrounding scab that is not tender or painful per pt. This was present on admission, pictures in chart. VSS, call light within reach, will continue to monitor.
[2020-02-06 06:21] LABS: Basophils % 0.2 % (0.1-2.0); Eosinophils % 0.4 % (0.1-12.0); Hematocrit 37.8 % (42.0-52.0); Hemoglobin 12.3 g/dL (14.1-18.0); Lymphocytes # 1.2 K/mm3 (0.7-4.5); Lymphocytes % 12.9 % (10-50); Mean Corpuscular HGB Conc 32.6 g/dL (31.8-35.4); Mean Corpuscular Hemoglobin 29.1 pg (27.0-31.2); Mean Corpuscular Volume 89.5 fl (80-94); Mean Platelet Volume 8.4 fl (7.4-10.4); Monocytes # 0.5 K/mm3 (0.1-1.0); Neutrophils # 7.2 K/mm3 (1.8-7.8); Neutrophils % 80.5 % (37.0-80.0); Platelet Count 125 K/mm3 (142-424); Red Blood Count 4.22 M/mm3 (4.60-6.20); Red Cell Distribution Width 13.4 % (11.5-17.5)
[2020-02-06 06:25] LABS: Chloride 101 mmol/L (98-107)
[2020-02-06 06:26] LABS: Potassium 3.6 mmoL/L (3.5-5.1); Sodium 134 mmol/L (136-145)
[2020-02-06 06:28] LABS: Alanine Aminotransferase 21 U/L (12-78); Alkaline Phosphatase 103 U/L (38-126); Anion Gap 10.6 mEq/L (5-15); Aspartate Amino Transferase 28 U/L (17-59); Blood Urea Nitrogen 26 mg/dl (9-20); Carbon Dioxide 26 mmol/L (22.0-30.0); Creatinine Clearance Estimated 160 mL/min (50-200); Estimated Glomerular Filt Rate 125 ml/min (>60); GFR (African American) 151 ML/MIN (>60)
[2020-02-06 06:29] LABS: Albumin Level 2.7 g/dl (3.5-5.0); Albumin/Globulin Ratio 0.7 (1.1-1.8); Calcium 8.6 mg/dl (8.4-10.2); Globulin 3.7 g/dL (1.3-3.2); Glucose 95 mg/dl (74-100); Total Protein,Serum 6.4 g/dl (6.3-8.2)
--- NOTE | 2020-02-06 06:37 | P.PN_ITS ---
Subjective Narrative: The patient is currently asleep and appears to be in no distress. Progress Note: A&P (1) Abdominal pain, acute, generalized Status: Acute (2) Colitis Status: Acute (3) Hepatitis C Status: Acute (4) Heroin abuse Status: Acute (5) IVDU (intravenous drug user) Status: Acute (6) Enlarged gallbladder Status: Acute (7) Chronic cholecystitis Status: Acute Assessment and plan: Findings on CT scan with regard to gallbladder do show some evidence of likely chronic changes. In relation to the patient's current symptoms, this seems somewhat less likely to be a causative factor. May ultimately require cholecystectomy; however, this decision will be somewhat guided by results of MRCP and possible gastroenterology consultation. (8) Dilation of biliary tract Status: Acute Assessment and plan: Follow-up MRCP Possible gastroenterology consultation (9) Abnormal CT of the abdomen Status: Acute (10) Gastric wall thickening Status: Acute Exam Vital signs and Labs for Last 24 Hours: Temp Pulse Resp BP Pulse Ox 98.1 F 93 H 16 147/82 H 97 02/06/20 04:00 02/06/20 04:00 02/06/20 04:00 02/06/20 04:00 02/06/20 04:00 Laboratory Results - last 24 hr 02/04/20 19:50: Ur Amphetamines Screen TNP 02/05/20 06:25: WBC 10.8, RBC 4.20 L, Hgb 12.2 L, Hct 36.9 L, MCV 87.8, MCH 29.0, MCHC 33.0, RDW 13.3, Plt Count 152, MPV 9.6, Neut % (Auto) 86.2 H, Lymph % (Auto) 7.1 L, [place] % (Auto) 6.4, Eos % (Auto) 0.1, Baso % (Auto) 0.2, Neut # (Auto) 9.3 H, Lymph # (Auto) 0.8, [place] # (Auto) 0.7, Eos # (Auto) 0.0, Baso # (Auto) 0.0, Total Counted 100, Neutrophils % (Manual) 87 H, Lymphocytes % (Manual) 8 L, Monocytes % (Manual) 5, Platelet Estimate Slight decrease, RBC Morphology Normal 02/05/20 06:25: Sodium 135 L, Potassium 3.6, Chloride 100, Carbon Dioxide 26, Anion Gap 12.6, BUN 25 H, Creatinine 0.70, Estimated Creat Clear 155, Estimated GFR 125, Est GFR ( Amer) 151, Glucose 106 H D, Calcium 8.8 I & O for Last 24 hours: Intake & Output 02/03/20 02/04/20 02/05/20 02/06/20 11:59 11:59 11:59 11:59 Intake Total 1560 / 1560 1721 / 1721 Balance 1560 / 1560 1721 / 1721 Weight 172 lb 2 oz 177 lb 15.984 oz Microbiology Reports for the Last 24 Hours: Microbiology 02/04/20 21:04 Blood Blood Culture - Preliminary 02/04/20 21:04 Blood Blood Culture - Preliminary - Constitutional no acute distress - *Routine Respiratory Exam Absent: respiratory distress - *Routine Cardiovascular Exam Present: RRR
[2020-02-06 07:40] VITALS: BP 150/79; PULSE 83; RESP 18; TEMP 36.8; O2SAT 98
[2020-02-06 07:53] VITALS: PULSE 83; RESP 18; O2SAT 98
[2020-02-06 08:16] LABS: INR 1.54 (0.9-1.1); Prothrombin Time 16.4 seconds (9.4-11.8)
[2020-02-06 08:37] LABS: Activated Partial Thrombo Time 34.6 seconds (23.6-34.0)
--- NOTE | 2020-02-06 09:03 | XR_ITS ---
PROCEDURE: XR CERVICAL SPINE 3V CLINICAL INDICATION: pain Posttraumatic pain COMPARISON: No exams were available for comparison FINDINGS: Normal alignment. No fracture or dislocation. The disc spaces are well preserved. No prevertebral soft tissue swelling. Other findings:None. IMPRESSION: No acute findings. Dictated by: Yan Adame MD 02/06/2020 14:21 Yan Adame MD in [place] 02/06/2020 14:21
--- NOTE | 2020-02-06 09:03 | XR_ITS ---
PROCEDURE: XR THORACIC SPINE 3V CLINICAL INDICATION: pain Posttraumatic pain COMPARISON: CR XR CHEST 2V from 02/04/[address] ABDOMEN PELVIS W CON from 02/04/2020 FINDINGS: Normal alignment. No definite fracture or dislocation. There is minimal hypertrophic change at T9-T10 similar to previous chest x-ray 02/04/2020 The joint spaces are well-preserved. No significant degenerative/arthritic changes. No erosive changes evident. Other findings:None. IMPRESSION: No acute findings. Dictated by: Yan Adame MD 02/06/2020 14:20 Yan Adame MD in [facility] 02/06/2020 14:20
--- NOTE | 2020-02-06 09:03 | XR_ITS ---
PROCEDURE: XR LUMBAR SPINE 2-3V CLINICAL INDICATION: pain,hx iv drug use Posttraumatic pain COMPARISON: No exams were available for comparison FINDINGS: Contrast is present within the colon from recent CT scan somewhat obscuring overlying bony detail. No acute fracture or dislocation is evident. Minimal hypertrophic changes are present at the endplates at L3-L4 and L5. The joint spaces are well-preserved. No significant degenerative/arthritic changes. No erosive changes evident. Other findings:None. IMPRESSION: No acute findings. Dictated by: Yan Adame MD 02/06/2020 14:20 Yan Adame MD in [facility] 02/06/2020 14:20
--- NOTE | 2020-02-06 09:14 | MR_ITS ---
PROCEDURE: MR ABDOMEN WO CON CLINICAL INDICATION: ABNORMAL CT,BRYSON HEPATIC MASS possible gastric mass, distended gallbladder COMPARISON: CT CT ABDOMEN PELVIS W CON from 02/01/[address] ABDOMEN PELVIS W CON from 02/04/2020 TECHNIQUE: Routine multiplanar multi echo sequences are performed without gadolinium enhancement. FINDINGS: The patient was scheduled for MRI abdomen and MRCP. Patient was unable to finish the exam and MRCP was not able to be performed. There is hepatosplenomegaly. The liver measures 20 3 cm cephalad caudad and the spleen measures 21 cm cephalad caudad. The gallbladder is distended. There is a gallstone present. The common bile duct is prominent at 9 mm. There is tapering of the distal aspect of the common bile duct. No obvious common duct stones are evident. The pancreatic duct does not appear to dilated. The pancreas however is not well delineated due to motion artifact. There does appear to be a small amount of pericholecystic fluid and a small amount of perihepatic and perisplenic fluid. The kidneys have an unremarkable appearance. There was thickening of the gastric wall on recent CT scan. This is not well evaluated by the MRI due to motion. There are small bilateral pleural effusions with bibasilar atelectatic changes IMPRESSION: 1. Hepatosplenomegaly with minimal amount of perihepatic and perisplenic fluid and minimal pericholecystic fluid. 2. Distended gallbladder with gallstone. Common bile duct is also prominent at 9 mm but tapers distally. No definite common duct stone is evident. An MRCP however was not able to be performed. Dictated by: Yan Adame MD 02/06/2020 09:19 Yan Adame MD in [facility] 02/06/2020 09:19
--- NOTE | 2020-02-06 12:44 | CT_ITS ---
PROCEDURE: CT THORACIC SPINE WO/W CON CLINICAL HISTORY: pain Thoracic spine pain COMPARISON: CT CT ABDOMEN PELVIS W CON from 02/01/[address] ABDOMEN PELVIS W CON from 02/04/2020 MR MR ABDOMEN WO CON from 02/06/2020 TECHNIQUE: 50 mL Optiray 350 Axial images obtained with sagittal and coronal reformats. All CT scans at the facility use one or more dose reduction, viz: automated exposure control, ma/kV adjustment per patient size (including targeted exams where dose is matched to indication, i.e. head), or iterative reconstruction technique. FINDINGS: Axial images are obtained without and with contrast. There is normal alignment. No acute fracture or dislocation evident. Degenerative disc disease is present at T9-T10. Phlegmonous changes are present in the left paraspinal soft tissues at T11-T12 with increased soft tissue density heterogeneous in nature with a loculated fluid collection in the soft tissues measuring approximately 3.8 cm transverse and 2.4 cm AP. This extends from the posterior aspect of the transverse process medially to the spinous process. A separate anterior paraspinal extension is also noted at 3.7 cm. This is consistent with an abscess versus necrotic mass. No bony destruction. There is questionable extension into the dorsal lateral spinal canal. There are small bilateral pleural effusions with bibasilar atelectasis. IMPRESSION: Phlegmonous changes are present in the left paraspinal soft tissues at T11-T12 with increased soft tissue density heterogeneous in nature with a loculated fluid collection in the soft tissues measuring approximately 3.8 cm transverse and 2.4 cm AP. This extends from the posterior aspect of the transverse process medially to the spinous process. A separate anterior paraspinal extension is also noted at 3.7 cm. This is consistent with an abscess versus necrotic mass. No bony destruction. Possible spinal canal extension dorsal laterally. Suggest MRI of the thoracolumbar junction without and with enhancement for further evaluation Dictated by: Yan Adame MD 02/07/2020 09:40 Yan Adame MD in [facility] 02/07/2020 09:40
--- NOTE | 2020-02-06 12:44 | CT_ITS ---
PROCEDURE: CT LUMBAR SPINE WO/W CON CLINICAL HISTORY: pain Low back pain COMPARISON: CT CT THORACIC SPINE WO/W CON from 02/06/2020 TECHNIQUE: 50 mL Optiray 350 Axial images obtained with sagittal and coronal reformats. All CT scans at the facility use one or more dose reduction, viz: automated exposure control, ma/kV adjustment per patient size (including targeted exams where dose is matched to indication, i.e. head), or iterative reconstruction technique. FINDINGS: Normal alignment. The disc spaces are well preserved. No fracture or dislocation. Mild bulging disc is present at L4-5. There is a small amount fluid in the pelvis. There is some subcutaneous edema. Splenomegaly is noted. Phlegmonous changes are present in the left paraspinal soft tissues at T11-T12 with increased soft tissue density heterogeneous in nature with a loculated fluid collection in the soft tissues measuring approximately 3.8 cm transverse and 2.4 cm AP. This extends from the posterior aspect of the transverse process medially to the spinous process. A separate anterior paraspinal extension is also noted at 3.7 cm. This is consistent with an abscess versus necrotic mass. No bony destruction. IMPRESSION: 1. Phlegmonous changes are present in the left paraspinal soft tissues at T11-T12 with increased soft tissue density heterogeneous in nature with a loculated fluid collection in the soft tissues measuring approximately 3.8 cm transverse and 2.4 cm AP. This extends from the posterior aspect of the transverse process medially to the spinous process. A separate anterior paraspinal extension is also noted at 3.7 cm. This is consistent with an abscess versus necrotic mass. There is question epidural extension posteriorly on the left. No bony destruction. Suggest MRI without and with enhancement for further evaluation Dictated by: Yan Admae MD 02/07/2020 09:43 Yan Adame MD in [facility] 02/07/2020 09:43
--- NOTE | 2020-02-06 13:06 | HMH.ACPN2 ---
Internal Medicine - PN: Subj *Date: 02/06/20 *Time: 08:00 Interval history: pt c/o of low back pain Exam Vital signs and Labs for Last 24 Hours: Temp Pulse Resp BP Pulse Ox 98.2 F 83 18 150/79 H 98 02/06/20 07:40 02/06/20 07:53 02/06/20 07:53 02/06/20 07:40 02/06/20 07:53 Laboratory Results - last 24 hr 02/06/20 05:51: WBC 9.0, RBC 4.22 L, Hgb 12.3 L, Hct 37.8 L, MCV 89.5, MCH 29.1, MCHC 32.6, RDW 13.4, Plt Count 125 L, MPV 8.4, Neut % (Auto) 80.5 H, Lymph % (Auto) 12.9, [place] % (Auto) 6.0, Eos % (Auto) 0.4, Baso % (Auto) 0.2, Neut # (Auto) 7.2, Lymph # (Auto) 1.2, [place] # (Auto) 0.5, Eos # (Auto) 0.0, Baso # (Auto) 0.0 02/06/20 05:51: Sodium 134 L, Potassium 3.6, Chloride 101, Carbon Dioxide 26, Anion Gap 10.6, BUN 26 H, Creatinine 0.70, Estimated Creat Clear 160, Estimated GFR 125, Est GFR ( Amer) 151, Glucose 95, Calcium 8.6, Total Bilirubin 1.0, AST 28, ALT 21 D, Alkaline Phosphatase 103, Total Protein 6.4, Albumin 2.7 L D, Globulin 3.7 H, Albumin/Globulin Ratio 0.7 L 02/06/20 07:29: PT 16.4 H, INR 1.54 H, APTT 34.6 H I & O for Last 24 hours: Intake & Output 02/04/20 02/05/20 02/06/20 02/07/20 11:59 11:59 11:59 11:59 Intake Total 1560 / 1560 1721 / 1721 Balance 1560 / 1560 1721 / 1721 Weight 172 lb 2 oz 177 lb 15.984 oz Microbiology Reports for the Last 24 Hours: Microbiology 02/04/20 21:04 Blood Blood Culture - Preliminary Gram Positive Cocci 02/04/20 21:04 Blood Blood Culture - Preliminary Gram Positive Cocci - Constitutional no acute distress - *Routine HEENT Exam Head: Present: normocephalic Eye: Present: PERRL ENT: Present: mucous membranes moist - *Routine Neck Exam Present: supple. Absent: lymphadenopathy - *Routine Respiratory Exam Present: CTA bilaterally - *Routine Cardiovascular Exam Present: RRR - *Routine Abdominal Exam Present: soft, normoactive bowel sounds. Absent: tenderness - *Routine Extremities Exam Absent: cyanosis, clubbing, edema - Routine Back/Spine/Pelvis Exam Back/Spine: Present: vertebral tenderness - *Routine Skin Exam Present: warm. Absent: rash - *Routine Neurological Exam Present: alert, oriented X3 - Routine Psychiatric Exam Present: normal affect Assessment and Plan (1) Abdominal pain, acute, generalized Status: Acute Category: Medical Code(s): R10.84 - Generalized abdominal pain (2) Colitis Status: Acute Category: Medical Code(s): K52.9 - Noninfective gastroenteritis and colitis, unspecified (3) Hepatitis C Status: Acute Qualifiers: Viral hepatitis chronicity: unspecified Hepatic coma status: without hepatic coma Qualified Code(s): B19.20 - Unspecified viral hepatitis C without hepatic coma Category: Medical Code(s): B19.20 - Unspecified viral hepatitis C without hepatic coma (4) Heroin abuse Status: Acute Category: Medical Code(s): F11.10 - Opioid abuse, uncomplicated (5) IVDU (intravenous drug user) Status: Acute Category: Social Hx Code(s): F19.90 - Other psychoactive substance use, unspecified, uncomplicated (6) Enlarged gallbladder Status: Acute Category: Medical Code(s): K82.8 - Other specified diseases of gallbladder (7) Chronic cholecystitis Status: Acute Category: Medical Code(s): K81.1 - Chronic cholecystitis (8) Dilation of biliary tract Status: Acute Category: Medical Code(s): K83.8 - Other specified diseases of biliary tract (9) Abnormal CT of the abdomen Status: Acute Category: Medical Code(s): R93.5 - Abnormal findings on diagnostic imaging of other abdominal regions, including retroperitoneum (10) Gastric wall thickening Status: Acute Category: Medical Code(s): K31.89 - Other diseases of stomach and duodenum - Assessment and plan all Dx Assessment and Plan for all problems:: rounded with dr galindo all orders per dr galindo x ray back
[2020-02-06 16:00] VITALS: BP 147/70; PULSE 73; RESP 16; TEMP 36.7; O2SAT 96
[2020-02-06 19:26] VITALS: BP 146/83; PULSE 72; RESP 16; TEMP 36.9; O2SAT 98
--- NOTE | 2020-02-06 22:46 | PC.NURSE ---
[facility] transfer RN called for current VS and update on pt condition. This was given to caller. No beds available at this time, will call back for more updates, given direct floor number.
[2020-02-07 03:58] VITALS: BP 157/86; PULSE 68; RESP 18; TEMP 36.8; O2SAT 96
[2020-02-07 05:00] VITALS: BMI 25.4
--- NOTE | 2020-02-07 06:05 | PC.NURSE ---
Pt is A&Ox4 and has ambulated in room and tolerated well. Pt has slept in intervals t/o shift. Pt c/o pain several times this shift, medicated per JUN. Lungs CTA, diminished bases. Encouraged pt to ambulated around in room more or in cruz if he could tolerate or work on pulmonary toilette as he has been laying in the bed t/o most of shift for a few days. No BM this shift, pt attempted to sit on toilet however pt c/o the slope of the toilet seat made it so pt was unable to sit down without sliding off. Pt requested bedpan, bedpan taken into room however then pt refused and asked for BSC. BSC taken into pt room, pt will attempt to use it. Pt denies any nausea. ABD non-tender, and active BS are noted. Pt's back is very tender to touch, although skin is clean and dry. Palpable site to middle of back and to the left of the spine. MDs aware. Dr. Gomez saw pt @ 1940 for a long conversation about today scans and POC. attempting to transfer pt to tertiary facility with neurosurgery speciality. MD Gomez gave [facility] his direct phone number to contact him. had no bed availability but stated they would call back this am for an update on pt's condition. Pt is amiable to transfer. Pt's , Birdie, called for an update, and per pt- can have update on POC and has the password. VSS, call light within reach, will continue to monitor.
[2020-02-07 07:03] LABS: Basophils % 0.3 % (0.1-2.0); Eosinophils % 0.3 % (0.1-12.0); Hematocrit 36.6 % (42.0-52.0); Hemoglobin 11.7 g/dL (14.1-18.0); Lymphocytes # 0.8 K/mm3 (0.7-4.5); Lymphocytes % 10.2 % (10-50); Mean Corpuscular Volume 90.6 fl (80-94); Mean Platelet Volume 8.3 fl (7.4-10.4); Monocytes # 0.7 K/mm3 (0.1-1.0); Monocytes % 8.1 % (1.7-9.3); Neutrophils # 6.7 K/mm3 (1.8-7.8); Neutrophils % 81.1 % (37.0-80.0); Platelet Count 122 K/mm3 (142-424); Red Blood Count 4.04 M/mm3 (4.60-6.20); Red Cell Distribution Width 13.4 % (11.5-17.5); White Blood Count 8.3 K/mm3 (4.8-10.8)
[2020-02-07 07:08] LABS: Chloride 104 mmol/L (98-107); Potassium 3.2 mmoL/L (3.5-5.1); Sodium 134 mmol/L (136-145)
[2020-02-07 07:11] LABS: Anion Gap 11.2 mEq/L (5-15); Blood Urea Nitrogen 26 mg/dl (9-20); Calcium 7.9 mg/dl (8.4-10.2); Carbon Dioxide 22 mmol/L (22.0-30.0); Creatinine Clearance Estimated 163 mL/min (50-200); Estimated Glomerular Filt Rate 125 ml/min (>60); GFR (African American) 151 ML/MIN (>60); Glucose 125 mg/dl (74-100)
--- NOTE | 2020-02-07 07:12 | HMH.GSPN ---
Subjective Narrative: The patient states that he kind of hurts all over . His most significant pain is in the back . He does complain of some abdominal pain but states that his belly feels better than before . Progress Note: A&P (1) Abdominal pain, acute, generalized Status: Acute Assessment and plan: Overall, improved compared to prior evaluation. Patient states that he has improved but continues to have some pain. He refused MRCP as scheduled yesterday morning. Ongoing evaluation can likely be completed as an outpatient. He may require gastroenterology consultation as an outpatient. EGD and possible colonoscopy in the near future (although this can ideally be completed within the next few weeks it does not need to be completed as an inpatient). The patient has refused MRCP. Ideally, an MRCP would be completed prior to any further evaluation as it may guide the possible need for ERCP (in addition to EGD and possible colonoscopy). In addition, it may direct decision making with regard to possible cholecystectomy. Ongoing discussion with regard to possible MRCP can be completed in the outpatient setting. (2) Colitis Status: Acute (3) Hepatitis C Status: Acute (4) Heroin abuse Status: Acute (5) IVDU (intravenous drug user) Status: Acute (6) Enlarged gallbladder Status: Acute (7) Chronic cholecystitis Status: Acute (8) Dilation of biliary tract Status: Acute (9) Abnormal CT of the abdomen Status: Acute (10) Gastric wall thickening Status: Acute Exam Vital signs and Labs for Last 24 Hours: Temp Pulse Resp BP Pulse Ox 98.3 F 68 18 157/86 H 96 02/07/20 03:58 02/07/20 03:58 02/07/20 03:58 02/07/20 03:58 02/07/20 03:58 Laboratory Results - last 24 hr 02/06/20 07:29: PT 16.4 H, INR 1.54 H, APTT 34.6 H 02/07/20 06:55: WBC 8.3, RBC 4.04 L, Hgb 11.7 L, Hct 36.6 L, MCV 90.6, MCH 29.0, MCHC 32.0, RDW 13.4, Plt Count 122 L, MPV 8.3, Neut % (Auto) 81.1 H, Lymph % (Auto) 10.2, [place] % (Auto) 8.1, Eos % (Auto) 0.3, Baso % (Auto) 0.3, Neut # (Auto) 6.7, Lymph # (Auto) 0.8, [place] # (Auto) 0.7, Eos # (Auto) 0.0, Baso # (Auto) 0.0 02/07/20 06:55: Sodium 134 L, Potassium 3.2 L, Chloride 104 I & O for Last 24 hours: Intake & Output 02/04/20 02/05/20 02/06/20 02/07/20 11:59 11:59 11:59 11:59 Intake Total 1560 / 1560 1721 / 1721 1508 / 1508 Balance 1560 / 1560 1721 / 1721 1508 / 1508 Weight 172 lb 2 oz 177 lb 15.984 oz 181 lb 8 oz Microbiology Reports for the Last 24 Hours: Microbiology 02/04/20 21:04 Blood Blood Culture - Preliminary Gram Positive Cocci 02/04/20 21:04 Blood Blood Culture - Preliminary Gram Positive Cocci - Constitutional no acute distress - *Routine Respiratory Exam Absent: respiratory distress - *Routine Cardiovascular Exam Present: RRR - *Routine Abdominal Exam Comments: Less tender
[2020-02-07 08:00] VITALS: BP 152/79; PULSE 75; RESP 20; TEMP 36.8; O2SAT 99
--- NOTE | 2020-02-07 08:07 | HMH.PHACONS ---
- Pharmacy Consult Date: 02/07/20 Time: 08:07 Referring provider: DR. MADRIGAL Reason for Consult:: VANCOMYCIN DOSING Allergies and ADEs:: Allergies Allergy/AdvReac Type Severity Reaction Status Date / Time No Known Allergies Allergy Verified 09/04/17 15:43 Home Medications:: Home Medications Medication Instructions Recorded Confirmed Type No Known Home Medications 02/04/20 02/04/20 History Height: 1.8 m Weight: 82.327 kg Laboratory Results:: Laboratory Results - last 24 hr 02/06/20 07:29: PT 16.4 H, INR 1.54 H, APTT 34.6 H 02/07/20 06:55: WBC 8.3, RBC 4.04 L, Hgb 11.7 L, Hct 36.6 L, MCV 90.6, MCH 29.0, MCHC 32.0, RDW 13.4, Plt Count 122 L, MPV 8.3, Neut % (Auto) 81.1 H, Lymph % (Auto) 10.2, [place] % (Auto) 8.1, Eos % (Auto) 0.3, Baso % (Auto) 0.3, Neut # (Auto) 6.7, Lymph # (Auto) 0.8, [place] # (Auto) 0.7, Eos # (Auto) 0.0, Baso # (Auto) 0.0 02/07/20 06:55: Sodium 134 L, Potassium 3.2 L, Chloride 104, Carbon Dioxide 22, Anion Gap 11.2, BUN 26 H, Creatinine 0.70, Estimated Creat Clear 163, Estimated GFR 125, Est GFR ( Amer) 151, Glucose 125 H, Calcium 7.9 L Medical History: Denies:: Cancer, Diabetes Mellitus Type 1, Diabetes Mellitus Type 2, MRSA Assessment and Plan (1) Abdominal pain, acute, generalized Status: Acute Category: Medical Code(s): R10.84 - Generalized abdominal pain (2) Colitis Status: Acute Category: Medical Code(s): K52.9 - Noninfective gastroenteritis and colitis, unspecified (3) Hepatitis C Status: Acute Qualifiers: Viral hepatitis chronicity: unspecified Hepatic coma status: without hepatic coma Qualified Code(s): B19.20 - Unspecified viral hepatitis C without hepatic coma Category: Medical Code(s): B19.20 - Unspecified viral hepatitis C without hepatic coma (4) Heroin abuse Status: Acute Category: Medical Code(s): F11.10 - Opioid abuse, uncomplicated (5) IVDU (intravenous drug user) Status: Acute Category: Social Hx Code(s): F19.90 - Other psychoactive substance use, unspecified, uncomplicated (6) Enlarged gallbladder Status: Acute Category: Medical Code(s): K82.8 - Other specified diseases of gallbladder (7) Chronic cholecystitis Status: Acute Category: Medical Code(s): K81.1 - Chronic cholecystitis (8) Dilation of biliary tract Status: Acute Category: Medical Code(s): K83.8 - Other specified diseases of biliary tract (9) Abnormal CT of the abdomen Status: Acute Category: Medical Code(s): R93.5 - Abnormal findings on diagnostic imaging of other abdominal regions, including retroperitoneum (10) Gastric wall thickening Status: Acute Category: Medical Code(s): K31.89 - Other diseases of stomach and duodenum - Assessment and plan all Dx Assessment and Plan for all problems:: BASED ON PATIENT FACTORS, RECOMMEND VANCOMYCIN 2 GM IV ONCE, FOLLOWED BY VANCOMYCIN 1500 MG IV Q8H. PHARMACY WILL FOLLOW DAILY AND ADJUST APPROPRIATE.
--- NOTE | 2020-02-07 13:58 | HMH.DCSUM ---
General - General Admission date:: 02/04/20 Discharge date: 02/07/20 HPI HPI: 39 yr old male presented to ed with abd pain. Patient seen in emergency department on 02/01/2020 for abdominal pain and vomiting. The CT scan which was read by [facility] radiologist as showing large amount of stool throughout the colon, mild hepatosplenomegaly. Then [facility] radiologist read the CT scan and added additional findings. Per notes The patient was called on 02/02/2020 and messages left. Patient states he was told to follow up with pcp but the pain brought him back to emergency room. He complains of pain in his lower back, pain that goes down both lower quadrants of his abdomen into his groin and up into his upper abdomen. Patient reports vomiting off and on. Denies fever.He reports to ed staff that he was using heroin pretty heavily until he was seen here and then has cut down a lot. The last time he used heroin was 2 days ago. He denies drinking alcohol or using other drugs. Patient admitted for colitis, placed on antibiotics. Hospital Course Hospital Course: Laboratory Tests 02/04/20 02/04/20 02/04/20 18:05 18:05 18:05 WBC RBC Hgb Hct MCV MCH MCHC RDW Plt Count MPV Neut % (Auto) Lymph % (Auto) [place] % (Auto) Eos % (Auto) Baso % (Auto) Neut # (Auto) Lymph # (Auto) [place] # (Auto) Eos # (Auto) Baso # (Auto) Total Counted Neutrophils % (Manual) Lymphocytes % (Manual) Monocytes % (Manual) Platelet Estimate RBC Morphology ESR PT INR APTT Sodium 133 L Potassium 4.1 Chloride 96 L Carbon Dioxide 26 Anion Gap 15.1 H BUN 27 H Creatinine 0.80 Estimated Creat Clear 165 Estimated GFR 107 Est GFR ( Amer) 130 Glucose 188 H Lactate 2.1 Calcium 9.1 Total Bilirubin 1.4 H AST 29 ALT 35 Alkaline Phosphatase 132 H C-Reactive Protein 278.3 H Total Protein 7.6 Albumin 3.3 L Globulin 4.3 H Albumin/Globulin Ratio 0.8 L Amylase 36 Lipase 10 L Urine Color Urine Appearance Urine pH Ur Specific [place] Urine Protein Urine Glucose (UA) Urine Ketones Urine Blood Urine Nitrate Urine Bilirubin Urine Urobilinogen Ur Leukocyte Esterase Urine RBC Urine WBC Ur Squamous Epith Cells Amorphous Sediment Urine Bacteria Urine Mucus Urine Sperm Urine Opiates Screen Urine Methadone Screen Ur Barbituates Screen Ur Phencyclidine Scrn Ur Amphetamines Screen U Benzodiazepines Scrn Urine Cocaine Screen U Marijuana (THC) Screen SARS-CoV-2 IgG Ab (Rapid) Negative SARS-CoV-2 IgM Ab (Rapid) Negative 02/04/20 02/04/20 02/04/20 18:45 18:45 19:50 WBC 13.7 H RBC 4.43 L Hgb 13.0 L Hct 39.0 L MCV 88.1 MCH 29.4 MCHC 33.3 RDW 13.1 Plt Count 195 MPV 8.4 Neut % (Auto) 81.3 H Lymph % (Auto) 10.5 [place] % (Auto) 7.6 Eos % (Auto) 0.4 Baso % (Auto) 0.2 Neut # (Auto) 11.1 H Lymph # (Auto) 1.4 [place] # (Auto) 1.0 Eos # (Auto) 0.1 Baso # (Auto) 0.0 Total Counted Neutrophils % (Manual) Lymphocytes % (Manual) Monocytes % (Manual) Platelet Estimate RBC Morphology ESR 80 H PT INR APTT Sodium Potassium Chloride Carbon Dioxide Anion Gap BUN Creatinine Estimated Creat Clear Estimated GFR Est GFR ( Amer) Glucose Lactate Calcium Total Bilirubin AST ALT Alkaline Phosphatase C-Reactive Protein Total Protein Albumin Globulin Albumin/Globulin Ratio Amylase Lipase Urine Color Gwendolyn Urine Appearance Clear Urine pH 6.0 Ur Specific [place] 1.025 Urine Protein 1+ Urine Glucose (UA) Negative Urine Ketones Negative Urine Blood Negative Urine Nitrate Negative Urine Bilir
[2020-02-07 16:00] VITALS: BP 153/80; PULSE 78; RESP 20; TEMP 36.7; O2SAT 95
[2020-02-09 15:11] LABS: Amphetamine Positive (.); Amphetamines Positive (.); Methamphetamine Positive (.)
[2020-02-09 15:27] LABS: Amphetamine (GC/MS) 2818 ng/mL (Cutoff=500); Methamphetamine (GC/MS) >3000 ng/mL (Cutoff=500)
== END 2020-02-07 16:20 | disposition home or self-care (01) | DRG 392 ==
LOC: ER 21:03 → 2ND 21:14
PROVIDERS: Nurse Practitioner Family; Surgery; Admitting Provider Emergency Medicine; Emergency Provider Emergency Medicine; PCP Emergency Medicine; Visit Provider Emergency Medicine
DX: K52.9 Noninfective gastroenteritis and colitis, unspecified (principal); K81.2 Acute cholecystitis with chronic cholecystitis; B17.10 Acute hepatitis C without hepatic coma; F11.20 Opioid dependence, uncomplicated; Z72.0 Tobacco use
CPT/HCPCS: 36415; 71046; 72040; 72072; 72100; 72130; 72133; 74177; 74181; 80048; 80053; 80076; 80305; 80324; 80329; 81001; 82140; 82150; 83605; 83690; 85007; 85025; 85610; 85651; 85730; 86140; 86328; 87040; 87077; 87186; 93306; 96365; 96366; 96375; 99284; 99285; J1956; J2405; J2543; J3370; Q9967

== ENCOUNTER 2020-06-11 02:30 | Emergency (ER) | payer OTHER, SELFPAY ==
[2020-06-11] VITALS (20 sets, daily range): BP systolic 108–175; BP diastolic 69–117; PULSE 64–111; RESP 15–26; TEMP 36.6; O2SAT 95–100; BMI 19.9
--- NOTE | 2020-06-11 02:45 | PC.NURSE ---
MULTIPLE IV ATTEMPTS PER MYSELF AND JAMIE; 17G IN WRIST
--- NOTE | 2020-06-11 02:46 | XR_ITS ---
PROCEDURE: XR CHEST PORTABLE CLINICAL HISTORY: HEROIN OD COMPARISON: No exams were available for comparison FINDINGS: The cardiomediastinal silhouette and pulmonary vascularity are within normal limits. The lungs are clear without infiltrates, suspicious nodules, or pleural effusions. No acute bony abnormalities. IMPRESSION: No acute findings. Dictated by: Yan Adame MD 06/11/2020 04:53 Yan Adame MD in [facility] 06/11/2020 04:53
--- NOTE | 2020-06-11 02:55 | PC.NURSE ---
BLOOD GIVEN TO LAB PHLEB. WAITING TO SEE IF ABLE TO RUN
--- NOTE | 2020-06-11 03:05 | PC.NURSE ---
CALL FROM DELFINA IN LAB. BLOOD NOT GOOD ENOUGH FOR RUNNING IN ANALYZER. JAMES OLGUIN ATTEMPTING TO STICK PATIENT FOR MORE BLOOD.
--- NOTE | 2020-06-11 03:08 | PC.NURSE ---
ASSISTED RAD WITH PORT CXR
[2020-06-11 03:21] LABS: Basophils % 0.7 % (0.1-2.0); Eosinophils % 0.7 % (0.1-12.0); Hematocrit 42.7 % (42.0-52.0); Hemoglobin 13.6 g/dL (14.1-18.0); Lymphocytes # 1.6 K/mm3 (0.7-4.5); Lymphocytes % 27.4 % (10-50); Mean Corpuscular HGB Conc 31.8 g/dL (31.8-35.4); Mean Corpuscular Hemoglobin 26.8 pg (27.0-31.2); Mean Corpuscular Volume 84.4 fl (80-94); Mean Platelet Volume 10.4 fl (7.4-10.4); Monocytes # 0.4 K/mm3 (0.1-1.0); Monocytes % 6.5 % (1.7-9.3); Neutrophils # 3.8 K/mm3 (1.8-7.8); Neutrophils % 64.7 % (37.0-80.0); Platelet Count 79 K/mm3 (142-424); Red Blood Count 5.07 M/mm3 (4.60-6.20); Red Cell Distribution Width 16.5 % (11.5-17.5); White Blood Count 5.9 K/mm3 (4.8-10.8)
[2020-06-11 03:26] LABS: Chloride 106 mmol/L (98-107); Potassium 4.4 mmoL/L (3.5-5.1); Sodium 136 mmol/L (136-145)
[2020-06-11 03:28] LABS: Alanine Aminotransferase 72 U/L (12-78); Aspartate Amino Transferase 73 U/L (17-59); Bilirubin,Unconjugated 0.6 mg/dL (0.0-1.1); Blood Urea Nitrogen 21 mg/dl (9-20); Creatinine Clearance Estimated 121 mL/min (50-200); Estimated Glomerular Filt Rate 125 ml/min (>60); GFR (African American) 151 ML/MIN (>60)
[2020-06-11 03:29] LABS: Albumin Level 4.4 g/dl (3.5-5.0); Alkaline Phosphatase 71 U/L (38-126); Anion Gap 15.4 mEq/L (5-15); Bilirubin,Direct 0.2 mg/dl (0.0-0.4); Bilirubin,Indirect 0.7 mg/dL (0.0-0.9); Bilirubin,Total 0.9 mg/dl (0.2-1.3); Calcium 9.9 mg/dl (8.4-10.2); Carbon Dioxide 19 mmol/L (22.0-30.0); Glucose 116 mg/dl (74-100); Total Protein,Serum 8.5 g/dl (6.3-8.2)
[2020-06-11 03:31] LABS: Acetaminophen < 10 ug/ml (10-30); Ethyl Alcohol < 10 mg/dl (0-10); Salicylate < 1.0 mg/dL (2.0-20.0)
--- NOTE | 2020-06-11 04:05 | HMH.EDOD ---
ED Disposition Condition on Discharge: Fair - Critical Care Critical Care Time: No <Marc Childers - Last Filed: 06/11/20 08:33> <Maverick Wen - Last Filed: 06/11/20 12:37> Clinical Impression: Amphetamine abuse, Poisoning by opiate or related narcotic, Parainfluenza virus rhinopharyngitis Disposition: Still a Patient Instructions: DI for Drug Overdose in Adults Additional Instructions: fluids and see pcp for follow up Referrals: PCP,No [Primary Care Provider] - Attestation: On 06/11/20, the high probability of a clinically significant, sudden or life threatening deterioration of the following system(s) required my full and direct attention, intervention and personal management. The time I documented below is in addition to time spent performing reported procedures but includes the following listed in this critical care notation. Medical Decision Making - Medical Records Medical records reviewed: Yes: I reviewed the patient's medical records. - Tarik Inquiry Pt receiving controlled substance: No - Lab Data Lab results reviewed: Yes: I reviewed the patient's lab results. Result diagrams: 06/11/20 03:14 06/11/20 03:14 - Radiology Data #1 Image(s): Chest Image Reviewed: Yes I reviewed the patient's radiology image Preliminary Findings: Normal/NAD - CT Data CT Scan: Head, C-Spine, T-Spine, L-Spine Time Received: 08:[address] Reviewed: Yes: I have viewed the radiologist's interpretation Preliminary Findings: Normal/NAD - Physician Consults Physician Consulted: pamela Reason -: Pt condition - Reevaluation(s) Time: 08:48 <Marc Childers - Last Filed: 06/11/20 08:33> - Lab Data Result diagrams: 06/11/20 03:14 06/11/20 03:14 - Reevaluation(s) Time: 12:00 <Maverick Wen - Last Filed: 06/11/20 12:37> Vital Signs: 06/11/20 02:25 06/11/20 03:00 06/11/20 03:30 Pulse Rate [Right Brachial] 75 68 64 Respiratory Rate 17 15 15 Blood Pressure [Right Arm] 108/74 L 116/78 111/69 Blood Pressure Mean [Right Arm] 85 90 83 Blood Pressure Source [Right Arm] Automatic Cuff Automatic Cuff Automatic Cuff Blood Pressure Position [Right Arm] Sitting Supine Supine 02 Sat by Pulse Oximetry 98 98 95 Oxygen Delivery Method Room Air Room Air Room Air 06/11/20 04:00 06/11/20 04:30 06/11/20 06:00 Pulse Rate [Right Brachial] 111 H 75 98 H Respiratory Rate 26 H 22 17 Blood Pressure [Right Arm] 157/99 H 137/95 H 160/98 H Blood Pressure Mean [Right Arm] 118 109 118 Blood Pressure Source [Right Arm] Automatic Cuff Manual Cuff/ Auscultation Blood Pressure Position [Right Arm] Supine 02 Sat by Pulse Oximetry 100 100 98 Oxygen Delivery Method Room Air Room Air 06/11/20 06:30 06/11/20 07:14 06/11/20 07:30 Pulse Rate [Right Brachial] 97 H 97 H 93 H Respiratory Rate 17 Blood Pressure [Right Arm] 166/107 H 165/110 H 175/111 H Blood Pressure Mean [Right Arm] 126 128 132 Blood Pressure Source [Right Arm] Automatic Cuff Automatic Cuff Automatic Cuff Blood Pressure Position [Right Arm] Supine Sitting Sitting 02 Sat by Pulse Oximetry 96 97 97 Oxygen Delivery Method Room Air Room Air Room Air 06/11/20 08:14 06/11/20 08:47 06/11/20 09:07 Pulse Rate [Right Brachial] 96 H 92 H 99 H Respiratory Rate Blood Pressure [Right Arm] 164/113 H 166/108 H 170/117 H Blood Pressure Mean [Right Arm] 130 127 134 Blood Pressure Source [Right Arm] Automatic Cuff Automatic Cuff Automatic Cuff Blood Pressure Position [Right Arm] Sitting Sitting Sitting 02 Sat by Pulse Oximetry 97 97 98 Oxygen Delivery Method Room Air Room Air Room Air 06/11/20 09:30 06/11/20 10:14 06/11/20 10:30 Pulse Rate [Right Brachial] 90 103 H 96 H Respiratory Rate 20 19 Blood Pressure [Right Arm] 148/94 H 153/105 H 144/98 H Blood Pressure Mean [Right Arm] 112 121 113 Blood Pressure Source [Right Arm] Automatic Cuff Blood Pressure Position [Right Arm] Sitting 02 Sat by Pulse Oximetry 96 98 97 Oxygen Delivery Method Room A
[2020-06-11 04:30] LABS: Microscopic, Urine URINE MICROSCOPIC (MICROSCOPIC)
[2020-06-11 04:32] LABS: Appearance,Urine CLEAR (Clear); Bilirubin,Urine Negative (Negative); Blood, Urine Negative (Negative); Color,Urine YELLOW (Yellow); Glucose,Urine (UA) Negative (Negative); Ketones,Urine Negative (Negative); Leukocyte Esterase,Urine Negative (Negative); Nitrate,Urine Negative (Negative); Protein,Urine Negative (Negative); Urobilinogen,Urine 0.2 EU/dl (0.2)
--- NOTE | 2020-06-11 04:35 | CT_ITS ---
PROCEDURE: CT HEAD/BRAIN WO CON CLINICAL INDICATION: ALTERED MENTAL STATUS Altered mental status, altered level of consciousness, confusion, disorientation, heroin overdose COMPARISON: No exams were available for comparison TECHNIQUE: Axial images obtained. All CT scans at the facility use one or more dose reduction, viz: automated exposure control, ma/kV adjustment per patient size (including targeted exams where dose is matched to indication, i.e. head), or iterative reconstruction technique. FINDINGS: No midline shift, mass effect, intracranial hemorrhage, hydrocephalus, or extra-axial fluid collection is evident. The calvarium has an unremarkable appearance. No mastoid effusion. Mucosal thickening involves the ethmoid sinuses with a small air-fluid level in the right maxillary sinus. IMPRESSION: 1. No acute intracranial findings. 2. Paranasal sinus disease Dictated by: Yan Adame MD 06/11/2020 06:00 Yan Adame MD in [facility] 06/11/2020 06:00
--- NOTE | 2020-06-11 04:37 | CT_ITS ---
PROCEDURE: CT CERVICAL SPINE W CON CLINICAL INDICATION: RULE OUT ABSCESS Evaluate for paraspinal abscess COMPARISON: No exams were available for comparison TECHNIQUE: Axial images obtained with sagittal and coronal reformats. All CT scans at the facility use one or more dose reduction, viz: automated exposure control, ma/kV adjustment per patient size (including targeted exams where dose is matched to indication, i.e. head), or iterative reconstruction technique. Axial spiral CT scanning performed of the cervical spine beginning at the base of the skull and continuing to the upper T-spine. 3-D multiplanar reconstruction with 3-D manipulation of volumetric data set in image rendering was completed by the radiologist and/or technologist with the supervision of the radiologist on independent workstation. FINDINGS: There is normal alignment. No fracture or dislocation. No lytic or blastic change. There is degenerative disc disease at C4-C5 with small central disc protrusion. Degenerative disc disease C5-C6 with mild right-sided foraminal narrowing from uncovertebral hypertrophy. No evidence of paraspinal abscess. No evidence of discitis. No enhancing lesions apparent. There is some mucus noted in the mid trachea IMPRESSION: Mild cervical spondylosis. No evidence of cervical paraspinal abscess. Dictated by: Yan Adame MD 06/11/2020 06:03 Yan Adame MD in [facility] 06/11/2020 06:03
--- NOTE | 2020-06-11 04:38 | CT_ITS ---
PROCEDURE: CT LUMBAR SPINE W CON CLINICAL HISTORY: RULE OUT ABSCESS Follow-up paraspinal abscess COMPARISON: CT CT LUMBAR SPINE WO/W CON from 02/06/2020 TECHNIQUE: Axial images obtained with sagittal and coronal reformats. All CT scans at the facility use one or more dose reduction, viz: automated exposure control, ma/kV adjustment per patient size (including targeted exams where dose is matched to indication, i.e. head), or iterative reconstruction technique. FINDINGS: There is normal alignment. No fracture or dislocation is evident. No evidence of spondylo discitis. No evidence of paraspinal abscess. Heterogeneous areas of slight increased density noted involving the inferior aspect T11 and the superior aspect of T12 nonspecific. Possibly due to prior infection. L1-L2: Unremarkable. L2-L3: Small central disc protrusion with mild facet and ligamentum hypertrophy with canal stenosis L3-L4: Mild bulging disc with facet and ligamentum hypertrophy with canal stenosis. L4-5: Bulging disc with facet and ligamentum hypertrophy with canal stenosis. L5-S1: Unremarkable. There is a moderate amount of retained colonic feces. Small loculated effusion noted in the left lung base posteriorly with mild atelectatic change IMPRESSION: 1. No evidence of spondylo discitis or paraspinal abscess. 2. Bulging disc with facet and ligamentum hypertrophy with canal stenosis as described above. 3. Moderate amount of retained colonic feces. Dictated by: Yna Adame MD 06/11/2020 06:21 Yan Adame MD in [facility] 06/11/2020 06:21
--- NOTE | 2020-06-11 04:39 | CT_ITS ---
PROCEDURE: CT THORACIC SPINE W CON CLINICAL HISTORY: RULE OUT ABSCESS History of paraspinal abscess, follow-up COMPARISON: CT CT THORACIC SPINE WO/W CON from 02/06/2020 TECHNIQUE: Axial images obtained with sagittal and coronal reformats. All CT scans at the facility use one or more dose reduction, viz: automated exposure control, ma/kV adjustment per patient size (including targeted exams where dose is matched to indication, i.e. head), or iterative reconstruction technique. FINDINGS: There is normal alignment. No acute fracture or dislocation is evident. There has been interval extensive surgery with posterior laminectomy at T5 through T8. No enhancing paraspinal mass is evident. There is mild degenerative disc disease at T9-T10. No evidence of acute spondylo discitis. No fracture or dislocation. In the left lung base medially there is a 13 mm nodular opacity at the T10-T11 level possibly due to an area of scarring. Suggest 3 to six-month CT follow-up to confirm stability. Pulmonary nodule is not excluded. IMPRESSION: Postsurgical changes. No evidence acute spondylo discitis. No evidence of paraspinal abscess. Indeterminate 13 mm left lower lobe nodule. Possibly due to scarring. Suggest 3 month follow-up chest CT without and with contrast Dictated by: Yan Adame MD 06/11/2020 06:13 Yan Adame MD in [facility] 06/11/2020 06:15
[2020-06-11 04:41] LABS: Bacteria,Urine Trace /lpf
[2020-06-11 04:45] LABS: Barbiturates Screen,Urine Negative ng/ml (<200)
[2020-06-11 04:46] LABS: Benzodiazepines Screen,Urine Positive ng/ml (<200); Cannabinoid Screen,Urine Positive ng/ml (<50)
[2020-06-11 04:47] LABS: Cocaine Screen,Urine Negative ng/ml (<300)
[2020-06-11 04:48] LABS: Methadone Screen,Urine Negative ng/ml (<300); Opiate Screen,Urine Positive ng/ml (<300)
[2020-06-11 04:49] LABS: Phencyclidine Screen,Urine Negative ng/ml (<25)
[2020-06-11 04:50] LABS: C-Reactive Protein 12.2 mg/L (0-4)
--- NOTE | 2020-06-11 04:58 | PC.NURSE ---
patient to CT
[2020-06-11 05:04] LABS: Procalcitonin 0.097 ng/mL (0.0-2.0)
[2020-06-11 05:45] LABS: Erythrocyte Sedimentation Rate 16 mm/hr (0-15)
--- NOTE | 2020-06-11 05:48 | PC.NURSE ---
pt back from ct
[2020-06-11 06:45] LABS: Adenovirus,PCR Not Detected (NotDetected); Bordetella Pertussis Not Detected (NotDetected); Chlamydophila Pneumoniae, PCR Not Detected (NotDetected); Coronavirus 19, PCR Not Detected (NotDetected); Coronavirus 229E Not Detected (NotDetected); Coronavirus NL63 Not Detected (NotDetected); Coronavirus OC43 Not Detected (NotDetected); Coronovirus HKU1,PCR Not Detected (NotDetected); Human Metapneumovirus Not Detected (NotDetected); Influenza A, PCR Not Detected (NotDetected); Influenza AH1, 2009 Not Detected (NotDetected); Influenza AH1, PCR Not Detected (NotDetected); Influenza AH3,PCR Not Detected (NotDetected); Influenza B, PCR Not Detected (NotDetected); Mycoplasma Pneumoniae, PCR Not Detected (NotDetected); Parainfluenza 1, PCR Not Detected (NotDetected); Parainfluenza 2, PCR Not Detected (NotDetected); Parainfluenza 3, PCR Not Detected (NotDetected); Parainfluenza 4, PCR Not Detected (NotDetected); Respiratory Syncytial Virus Not Detected (NotDetected)
--- NOTE | 2020-06-11 07:16 | PC.NURSE ---
Dr Childers speaking to Dr Walker about pt.
--- NOTE | 2020-06-11 07:21 | PC.NURSE ---
Per Dr Walker pt is to stay in ED until around 1200 to see if he is more alert, if so he is to be discharged from the ED. If mental status is the same to call Dr Walker back for possible admission.
--- NOTE | 2020-06-11 07:27 | PC.NURSE ---
Patient sleeping at this time, arouses to painful stimuli. Respirations symmetrical and unlabored. Vitals stable at this time, continuing to monitor.
[2020-06-11 08:00] LABS: Rhinovirus/Enterovirus Detected (NotDetected)
--- NOTE | 2020-06-11 08:57 | PC.NURSE ---
pt awake, asking to call family. attempted to call skye on contact list. no answer, no voice mailbox set up
--- NOTE | 2020-06-11 08:58 | PC.NURSE ---
pt taking fluids. refused breakfast tray
--- NOTE | 2020-06-11 13:00 | PC.NURSE ---
pt up out of bed ambulating
== END 2020-06-11 13:13 | disposition still patient (30) ==
PROVIDERS: Emergency Provider Emergency Medicine
DX: F19.90 Other psychoactive substance use, unspecified, uncomplicated; R41.82 Altered mental status, unspecified; J00 Acute nasopharyngitis [common cold]; F17.210 Nicotine dependence, cigarettes, uncomplicated; B34.8 Other viral infections of unspecified site
CPT/HCPCS: 70450; 71045; 72126; 72129; 72132; 80048; 80076; 80305; 80324; 80329; 81001; 84145; 85025; 85651; 86140; 87581; 87633; 87798; 96365; 96367; 96375; 99284; J2310; Q9967